=== PATIENT | male | born 1935 | race Caucasian/White ===

== ENCOUNTER → 2023-11-23 09:04 | Outpatient (REF) | payer BC, SELFPAY | LOC: HWRAD 09:04 | PROVIDERS: ATTENDING PHYSICIAN Nurse Practitioner Family | DX: M25.561 Pain in right knee (principal) | CPT/HCPCS: 73564 ==

== ENCOUNTER 2024-09-22 11:18 | Emergency (ER) | payer BC, SELFPAY ==
[2024-09-22 11:31] VITALS: BP 116/76
--- NOTE | 2024-09-22 13:12 | ED.GENMED ---
History of Present Illness
General
Chief Complaint: Breathing Problem
Source: patient
Exam Limitations: none
Time Seen by Provider: 09/22/24 13:03
History of Present Illness
History of Present Illness:
89-year-old male with history of atrial fibrillation on amiodarone and Eliquis presents with fatigue and shortness of breath. He developed COVID eyes of September 09 and started Paxlovid September 11. He finished this course. After finishing the
course he developed more shortness of breath and fatigue. He notes decreased urine output. He denies any vomiting. No recent fever. He was seen by family doctor today and sent in for further evaluation
Past History
Past History
ED Past Medical History: Arrthythmia and HTN
ED Past Surgical History: None
Social History
Personal:
Living: with family
Employment: Retired
Phy Exam
Physical Exam
Physical Exam:
General: Well-developed male with increased work of breathing slightly tachypneic at rest
HEENT: Normocephalic atraumatic neck is supple mucosa dry
Heart: Regular rate and rhythm
Lungs: Clear no obvious wheeze or rales
Abdomen is soft nontender nondistended
Extremities: No cyanosis
Scores
Heart Failure Risk
Heart Failure Risk Score: Not Applicable
Course
Orders/Labs/Results
Orders:
Orders
09/22/24 13:11
0.9% Sodium Chloride 1000 ml [Nss] 1,000 ml IV BOLUS
09/22/24 13:12
CR Chest - 2 Views Urgent
Comment:
Reason For Exam: sob
09/22/24 13:42
Complete Blood Count/With Diff Urgent
Comprehensive Metabolic Panel Urgent
Lactic Acid Q4H
Comment: CANCEL 2nd LACTIC ACID IF 1st LACTIC ACID IS LESS THAN 2
Abnormal Lab Results
09/22/24
13:42
RBC 4.27 L 10^6/uL
(4.70-6.10)
Hct 38.8 L %
(39.0-52.0)
MCH 31.4 H pg
(27.0-31.0)
Abs Immat Gran (auto) 0.1 H 10^3/uL
(0-0.05)
Absolute Lymphs (auto) 1.1 L 10^3/uL
(1.2-3.4)
Immature Gran % 1.5 H %
(0-0.5)
Lymphocytes % 14.8 L %
(20.5-51.1)
Sodium 130 L mmol/L
(135-145)
Chloride 97 L mmol/L
(98-107)
BUN 31 H mg/dl
(9-20)
Glucose 102 H mg/dl
(70-99)
09/22/24 13:42
09/22/24 13:42
Vital Signs
Initial and Last Documented VS:
Initial Vital Signs
Temp Pulse Resp BP Pulse Ox
97.7 F 75 20 116/76 93
09/22/24 11:31 09/22/24 11:31 09/22/24 11:31 09/22/24 11:31 09/22/24 11:31
Last Documented Vital Signs
Temp Pulse Resp BP Pulse Ox
97.8 F 60 15 117/70 98
09/22/24 13:36 09/22/24 14:30 09/22/24 14:30 09/22/24 14:13 09/22/24 13:39
MDM/Problems Addressed
Differential Diagnosis Includes:
Fatigue and shortness of breath following COVID illness and Paxlovid course. I reviewed call in information from the family doctor. There were concern for sepsis. BP at triage is stable however he was noted to be hypotensive in their office.
Labs pending fluids ordered chest x-ray ordered.
*Critical Care Note
Total Time (30-74mins, 75-104mins- exclusive of procedures): Not Applicable
Update Note
Update Note:
Patient reevaluated feeling well vital signs are stable not hypotensive heart rate as well. Labs reviewed slight hyponatremia at 130 but was given a liter of fluid. Chest x-ray was personally visualized and is negative. Suspect patient is
deconditioned from recent COVID illness. Admission not indicated at this time. Discussed with patient and in the room. Stable for discharge
ED Attending Note
-
Portions of this chart may have been created with voice recognition software.� Occasional wrong word or��sound alike� substitutions may have occurred due to the inherent limitations of voice recognition software.
Discharge Plan
Departure
Patient Disposition: Home (Routine Discharge)
Date of Disposition: 09/22/24
Time of Disposition: 15:28
Patient with high blood pressure during this ER visit?: No
Discharge Problem:
Fatigue
Prescriptions:
No Action
metoprolol succinate 100 MG tablet extended release 24 hr
100 mg PO BID
nitroglycerin 0.4 MG tablet, sublingual
0.4 mg sublingual DAILY
ipratropium bromide 1 SPRAY spray,non-aerosol
1 spray intranasal BID
Eliquis 5 MG tablet
5 mg PO BID Qty: 1 0RF
Dupixent Syringe 300 MG/2 ML syringe
300 mg SQ .EVERYOTHER WK
Metamucil 660 GM powder
2 ea PO DAILY
Patient Comments:
pt takes 2 tablespoons daily
carboxymethylcellulose sodium [Refresh Tears] 15 ML drops
15 ml BOTH EYES BID
atorvastatin 40 mg Tablet
40 mg PO DAILY
amiodarone 200 mg Tablet
200 mg PO SA
Rx Instructions:
patient takes Thursday, Thursday,Thursday,
amiodarone 200 mg Tablet
100 mg PO MO
Rx Instructions:
1/2 tablet thursday,thursday,thursday
fexofenadine [Eva] 180 mg Tablet
180 mg PO DAILY
fexofenadine [Eva] 180 mg Tablet
180 mg PO DAILY
omeprazole 40 mg Capsule,Delayed Release(Dr/Ec)
40 mg PO DAILY
azelastine 137 mcg (0.1 %) Aerosol,[place]
2 spray INTRANASAL BID
eplerenone 25 mg Tablet
25 mg PO DAILY
lisinopril 10 MG tablet
20 mg PO DAILY
Rx Instructions:
Hold for BP <120
Referrals:
Henrique Fleming CRNP [Family Provider] -
Activity Restrictions/Additional Instructions:
Rest. Drink plenty of fluids. Please return here if worse otherwise follow-up with your doctor
Interventions
Interventions:
*Risk Screen - Suicide Last Done: 09/22/24 11:31
*General Assessment Last Done: 09/22/24 13:36
*Neglect/Abuse Screening Last Done: 09/22/24 11:31
ED- Fall Risk Assessment Last Done: 09/22/24 13:36
*ED COVID-19 Vaccine History Last Done: 09/22/24 13:36
ED- Cardiac Assessment Last Done: 09/22/24 13:36
ED- Pulmonary Assessment Last Done: 09/22/24 13:36
Discharge Date and Time
Print Language: SWISS
[2024-09-22 13:35] VITALS: BMI 20.5
[2024-09-22 13:38] VITALS: BP 127/74
[2024-09-22] MEDS: NSS 1000 IV (13:39)
[2024-09-22 13:56] LABS: % Basophils 0.4 % (0-2); % Eosinophils 1.8 % (0-6); % Immature Granulocytes 1.5 % (0-0.5); % Lymphocytes 14.8 % (20.5-51.1); % Monocytes 8.8 % (1.7-9.3); % Neutrophils 72.7 % (42.2-75.2); Absolute Eosinophils 0.1 10^3/uL (0-0.7); Absolute Immature Granulocytes 0.1 10^3/uL (0-0.05); Absolute Lymphocytes 1.1 10^3/uL (1.2-3.4); Absolute Monocytes 0.6 10^3/uL (0.1-0.6); Absolute Neutrophils 5.3 10^3/uL (1.4-6.5); Hematocrit 38.8 % (39.0-52.0); Hemoglobin 13.4 g/dL (13.0-18.0); Mean Corp Hgb Conc. 34.5 g/dL (33.0-37.0); Mean Corpuscular Hgb 31.4 pg (27.0-31.0); Mean Corpuscular Volume 90.9 fL (80.0-94.0); Mean Platelet Volume 8.7 fL (7.4-10.4); Nucleated Red Blood Cells % 0 % (-); Platelet Count 215 10^3/uL (130-400); Red Blood Cell Count 4.27 10^6/uL (4.70-6.10); White Blood Cell Count 7.3 10^3/uL (4.8-10.8)
[2024-09-22 14:07] LABS: Lactic Acid 1.1 mmol/L (0.7-2.0)
[2024-09-22 14:13] VITALS: BP 117/70
[2024-09-22 14:15] LABS: ALT (SGPT) 29 U/L (0-50); AST (SGOT) 30 U/L (17-59); Albumin 3.7 g/dl (3.5-5.0); Alkaline Phosphatase 87 U/L (38-126); Blood Urea Nitrogen 31 mg/dl (9-20); Calcium 9.6 mg/dl (8.4-10.2); Carbon Dioxide 26 mmol/L (22-30); Chloride 97 mmol/L (98-107); Estimated Creatinine Clearance 38 ml/min; Glucose 102 mg/dl (70-99); Potassium 4.9 mmol/L (3.5-5.1); Sodium 130 mmol/L (135-145); Total Bilirubin 0.6 mg/dl (0.2-1.3); Total Protein 6.4 g/dl (6.3-8.2); eGFR 58.17
[2024-09-22 15:00] VITALS: BP 128/69
== END 2024-09-22 15:47 | disposition home or self-care (01) ==
LOC: EMR 11:18
PROVIDERS: Physician Assistant; EMERGENCY PHYSICIAN Emergency Medicine; FAMILY PHYSICIAN Nurse Practitioner Family
DX: R53.83 Other fatigue (principal); I48.91 Unspecified atrial fibrillation; I10 Essential (primary) hypertension; Z79.01 Long term (current) use of anticoagulants
CPT/HCPCS: 99283; 96360; 71046; 80053; 83605; 85025

== ENCOUNTER → 2025-03-02 13:54 | Outpatient (REF) | payer BC, SELFPAY | LOC: HWRCS 13:54 | PROVIDERS: ATTENDING PHYSICIAN Internal Medicine Cardiovascular Disease; FAMILY PHYSICIAN Nurse Practitioner Family | DX: Z95.0 Presence of cardiac pacemaker (principal) | CPT/HCPCS: 93306 ==

== ENCOUNTER 2025-03-10 08:02 | Day surgery (SDC) | payer BC, SELFPAY ==
[2025-02-28 13:22] VITALS: BMI 22.1
[2025-03-10 08:15] VITALS: BP 140/73; BMI 21.1
[2025-03-10 08:31] VITALS: BP 140/73
[2025-03-10 12:21] VITALS: BP 139/65
--- NOTE | 2025-03-10 13:35 | ITS.CL.PACE ---
[employer] [facility] - Pacemaker Implant
Pacemaker Implant
Procedure Report:
Date of Procedure: March 10, 2025.
Procedures: Dual chamber pacemaker generator change. Pacemaker pulse generator explantation and pacemaker pulse generator implantation.
Indication: Pacemaker at [facility] from natural battery depletion. 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 Intact AV conduction.
Performing physician: Bennett Strong MD, [facility].
Implant: Pacemaker Pulse Generator: Medtronic; Model# W1DR01; Serial# [id number].
Explanted Pacemaker Pulse Generator (Implanted 03/11/2016): Medtronic; Model# [id number]; Serial# [id number].
Retained Leads (Implanted 03/11/2016):
RA Lead: Medtronic; Model# 5076-45cm; Serial# [id number].
RV Lead: Medtronic; Model# 5076-52cm; Serial# [id number].
Technique: A time out was performed. The procedure site was identified. The patient was anesthetized by the anesthesia service. Preoperative antibiotics were administered prior to skin incision per protocol. The patient was prepped and draped in the
usual fashion. Local anesthetic was applied to the left prepectoral subcutaneous tissue. A 3 inch incision was made over the pulse generator. The capsule was entered with Bovie cautery. The old pacemaker pulse generator was explanted. No Bovie
cautery was applied to the lead system. The leads were appropriately attached to the new device. The pocket was irrigated with antibiotic solution. Hemostasis was excellent. The device and leads were placed in the pocket. The incision was closed in
three layers with absorbable suture. Steri-strips and a silver impregnated dressing were applied. The estimated blood loss was less than 5 mL. There were no complications. No fluoroscopy.
Lead Analysis:
RA lead: P: n/a mV; Threshold: 1.75 V @ 0.4 ms; Impedance: 380 ohms.
RV lead: R: 12.1 mV; Threshold: 1.25V @ 0.4 ms; Impedance: 399 ohms.
Final Programming: MVP (DDDR <=> AAIR) 60 - 130 bpm.
Conclusion: Uncomplicated Medtronic pacemaker change. The pacemaker is MRI conditional.
Recommendation: Routine post pacemaker care.
cc: REUBEN Menendez and Victor M Bull MD.
== END 2025-03-10 13:53 | disposition home or self-care (01) ==
LOC: CATH 08:02
PROVIDERS: ATTENDING PHYSICIAN Internal Medicine Cardiovascular Disease; FAMILY PHYSICIAN Nurse Practitioner Family; OTHER PHYSICIAN Internal Medicine Cardiovascular Disease
DX: Z45.010 Encounter for checking and testing of cardiac pacemaker pulse generator [battery] (principal); I49.5 Sick sinus syndrome; I48.0 Paroxysmal atrial fibrillation; E03.9 Hypothyroidism, unspecified; E78.5 Hyperlipidemia, unspecified; G25.0 Essential tremor; I10 Essential (primary) hypertension; I25.10 Atherosclerotic heart disease of native coronary artery without angina pectoris; Z86.73 Personal history of transient ischemic attack (TIA), and cerebral infarction without residual deficits; Z79.899 Other long term (current) drug therapy; Z79.01 Long term (current) use of anticoagulants; Z88.0 Allergy status to penicillin; Z79.890 Hormone replacement therapy; Z88.5 Allergy status to narcotic agent; Z88.1 Allergy status to other antibiotic agents; Z90.79 Acquired absence of other genital organ(s); Z95.1 Presence of aortocoronary bypass graft
CPT/HCPCS: 33228; 93005; C1785